=== PATIENT | male | born 1965 | race Caucasian/White ===

== ENCOUNTER 2020-05-25 17:56 | Emergency (ER) | payer OTHER ==
[~2020-05-25] VITALS: Ht 185.4 cm; Wt 101.2 kg
[2020-05-25 18:05] VITALS: BP 124/92
[2020-05-25] MEDS ORDERED: DIPH,PERTUSS(ACELL),TET VAC/PF 0.5 ML IM-VACC ONE ×2 (18:30→18:47)
[2020-05-25] MEDS ORDERED: LIDOCAINE-MPF 1%, 5ML INFIL ONE (18:30)
[2020-05-25] MEDS ORDERED: LIDOCAINE-MPF 1%, 5ML ONE (18:47)
== END 2020-05-25 19:52 | disposition home or self-care (01) ==
LOC: ED 19:17
DX: S61.216A Laceration without foreign body of right little finger without damage to nail, initial encounter (principal); F17.290 Nicotine dependence, other tobacco product, uncomplicated; X58.XXXA Exposure to other specified factors, initial encounter; Y93.89 Activity, other specified; Y92.69 Other specified industrial and construction area as the place of occurrence of the external cause; Y99.0 Civilian activity done for income or pay
CPT/HCPCS: 12041; 90471; 90715; 99284